=== PATIENT | male | born 1985 | race Caucasian/White ===

== ENCOUNTER 2024-05-16 13:43 | Outpatient (AMB) | payer OTHER, SELFPAY ==
--- NOTE | 2024-05-16 14:01 | A.SPINEOV_ITS ---
Vital Signs 05/16/24 14:31 Height 5 ft 11 in Weight 205 lb BMI 28.6 Intake Visit Reasons: disc herniation Intake Note: Mr. Callahan is here today c/o Low back pain that radiates down to the Right leg Quality Assurance Assistant Required: No Allergies No Known Allergies Allergy (Verified 05/16/24 14:31) Physical Exam Vital Signs: BMI result Body Mass Index 28.6 Assessment & Plan Assessment & Plan (1) Lumbar disc herniation: Code(s): M51.26 - Other intervertebral disc displacement, lumbar region Category: Medical Plan This is a very nice 38-year-old gentleman with a history of 2 previous right L3- [address] Mckinnon, the last being in 2021 I believe. Sometime earlier this year he experienced abrupt onset of pain in his right-sided low back radiating down his right leg. It primarily goes from his outer right calf down into his right foot. The pain can come and go. Initially when it started it was so severe he could barely stand up straight. Since then it has been a waxing and waning on and off discomfort. Sometimes he will feel like things are okay but as he does more activity the pain will intensify. He went through physical therapy. He has been taking Tylenol, Flexeril and gabapentin. The Flexeril helps him sleep. He can not take nonsteroidal anti-inflammatories secondary to gastroparesis. He had an MRI done at [place] in April of this year showing a large recurrent herniated disc at L3-4. He is on the surgical schedule for next week to undergo a posterior lumbar interbody fusion with , and came in today for 2nd opinion. He has no weakness of the leg but there is a lot of tingling and numbness. PMH: Gastroparesis, migraines, cholecystectomy, previous L4-5 diskectomy, 2 previous right L3-4 diskectomies. Denies any problem with his heart, lungs, strokes, liver, kidneys, major abdominal surgeries, coagulopathies, bleeding disorders, blood clots, cancer Social hx: He does not smoke, drink use any recreational drugs Medications: Omeprazole, citalopram, gabapentin, Flexeril Allergies: None Physical exam: Gait, strength and reflexes all normal in the lower extremities Imaging review: There is a lumbar MRI done the [facility] in April 2024 which shows degenerative discs at L4-5 and L5-S1 with moderate to severe collapse as well as L3-4 showing a large extruded disc fragment on the right. Impression: 38-year-old male with his 3rd disc herniation at the right L3-4 interspace, operated on previously twice by Dr. Mckinnon for microdiskectomy, who was seen in her office and offered a posterior lumbar interbody fusion. He came by for a 2nd opinion. I explained to him that typically this would be a standard of practice with a 3rd disc herniation to do lumbar interbody fusion. Dr. Ulloa would choose a transforaminal approach which is a more minimally invasive option, but that a posterior lumbar interbody fusion certainly as a standard of care and a reasonable option. He is expecting his 4th child in the next month or so and wants to have the surgery done as soon as possible. Dr. Mckinnon has it plan for next week. At this point he is going to move ahead with surgery, but if he ends up delaying the surgery for any reason, he is interested in considering a transforaminal lumbar interbody fusion. He will call us back and let us know if he wants to proceed with that, otherwise he is moving ahead with surgery next week with . Thank you for allowing us to care for your patient. The total time spent with this visit with this patient was 45 minutes reviewing history, physical exam, lumbar imaging review, and implementation of treatment plan or further diagnostic testing Pantera Ulloa MD,PhD [facility] Coding Level of Care Code New Pt Level 4 (12540) Diagnoses Lumbar disc herniation M51.26
[2024-05-16 14:31] VITALS: BMI 28.6
== END 2024-05-16 15:18 | disposition home or self-care (01) ==
PROVIDERS: PCP Family Medicine; Visit Provider Physician Assistant
DX: M51.26 Other intervertebral disc displacement, lumbar region (principal)
CPT/HCPCS: 99204